=== PATIENT | female | born 1985 | race African-American/Black ===

== ENCOUNTER 2020-08-16 23:48 | Emergency (ER) | payer OTHER ==
[~2020-08-16] VITALS: Ht 165.1 cm; Wt 63.6 kg
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
[2020-08-17 01:14] LABS: BARBITURATES NEG (NEG); BENZODIAZEPINES NEG (NEG); CANNABINOIDS POS (NEG); COCAINE NEG (NEG); CREATININE 0.9 mg/dL (0.6-1.0); GFR 87.3; METHADONE NEG (NEG); OPIATES NEG (NEG); PHENCYCLIDINE NEG (NEG); POTASSIUM 3.9 mmol/L (3.5-5.1)
[2020-08-17 01:15] LABS: AMPHETAMINE/METHAMPHETAMINE NEG (NEG)
[2020-08-17 01:39] LABS: BASO % 0 % (0-3); EOS # 0.1 x10^3/uL (0.0-0.7); EOS % 2 % (0-3); HEMATOCRIT 33.4 % (36.0-47.0); HEMOGLOBIN 10.9 g/dL (12.0-15.5); LYMPH # 1.4 x10^3/uL (1.0-4.8); LYMPH % 31 % (24-48); MEAN CORPUSCULAR HEMOGLOBIN 28 pg (25-35); MEAN CORPUSCULAR HGB CONC 33 g/dL (31-37); MEAN CORPUSCULAR VOLUME 85 fL (79-100); MONO # 0.4 x10^3/uL (0.0-1.1); MONO % 8 % (0-9); NEUT # 2.7 x10^3/uL (1.8-7.7); NEUT % 58 % (31-73); PLATELET COUNT 320 x10^3/uL (140-400); RED BLOOD COUNT 3.94 x10^6/uL (3.50-5.40); RED CELL DISTRIBUTION WIDTH 15.5 % (11.5-14.5); WHITE BLOOD COUNT 4.6 x10^3/uL (4.0-11.0)
[2020-08-17] MEDS ORDERED: CONTRAST GIVEN. MC PRN (02:15)
[2020-08-17] MEDS ORDERED: IOHEXOL 300 MG/ML 100ML VIAL. IV ONE (02:30)
[2020-08-17 04:45] LABS: PREG TEST PT QUAL NEGATIVE (NEG)
[2020-08-17 04:59] VITALS: BP 96/53
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
== END 2020-08-17 07:11 | disposition home or self-care (01) ==
LOC: ER 23:48 → EEVIPCON 23:48 → ER 08-17 07:11
DX: G89.11 Acute pain due to trauma (principal); R07.81 Pleurodynia; R10.12 Left upper quadrant pain; F10.229 Alcohol dependence with intoxication, unspecified; D64.9 Anemia, unspecified; F12.90 Cannabis use, unspecified, uncomplicated; F17.200 Nicotine dependence, unspecified, uncomplicated; V89.2XXA Person injured in unspecified motor-vehicle accident, traffic, initial encounter; Y93.89 Activity, other specified; Y92.89 Other specified places as the place of occurrence of the external cause; Y99.8 Other external cause status
CPT/HCPCS: 36415; 70450; 71260; 72125; 74177; 80048; 80307; 84703; 85025; 99285; G0480; Q9967